=== PATIENT | female | born 1970 | race Caucasian/White ===

== ENCOUNTER 2023-08-24 15:05 | Emergency (ER) | payer MEDICAID ==
[~2023-08-24] VITALS: Ht 167.6 cm; Wt 82.0 kg
[2023-08-24 15:08] VITALS: BP 162/90; PULSE 90; RESP 17; O2SAT 100
[2023-08-24] MEDS ORDERED: IBUP-2029 MT (16:49)
== END 2023-08-24 18:08 | disposition home or self-care (01) ==
LOC: ER 15:05
DX: M25.562 Pain in left knee (principal); W18.39XA Other fall on same level, initial encounter; Y93.89 Activity, other specified; Y92.89 Other specified places as the place of occurrence of the external cause; Y99.8 Other external cause status
CPT/HCPCS: 73560; 99283